=== PATIENT | female | born 1960 | race Caucasian/White ===

== ENCOUNTER 2018-03-15 01:44 | Observation (INO) | payer OTHER ==
[~2018-03-15] VITALS: Ht 172.7 cm; Wt 85.3 kg
[~2018-03-15 01:44] MED LIST: COZAAR25 M1 PO; CRESTOR10 M1 PO; ZOLOFT100 M1 PO
--- NOTE | 2018-03-15 07:47 | Operative Report ---
Operative/Inv Procedure Report Surgery Date: 03/15/18 Name of Procedure: Right total knee arthroplasty Pre-Operative Diagnosis: Right knee degenerative joint disease Post-Operative Diagnosis: Right knee degenerative joint disease Estimated Blood Loss: 50ml to 100ml Surgeon/Industrial Economics Teacher: Harris LAGUNAS,JONI Todd Anesthesia: block, spinal Implants: [employer] size 6 right cruciate retaining legion Oxinium femoral component. Judith II right nonporous tibial baseplate size 4. Judith II biconvex patellar component size 23 mm. Legion cruciate retaining XLPE high flexion articular insert size 34, 9 mm. Drains: Hemovac Complications: None Condition: Stable to PACU Operative Indication: This is a 57-year-old female with long-standing right knee pain that has failed conservative care. Risks and benefits of the procedure were discussed with the patient at length. Risks include but are not limited to nerve damage, muscle damage, infection, blood loss, blood clots, pulmonary embolus, and even . The patient agreed to the above risks and elected to proceed with surgery. Operative/Procedure Note Note: The patient was taken to the operating room. Anesthesia was induced after the timeout was performed. The lower extremity was prepped and draped in the normal sterile fashion. IV antibiotics were given prior to incision. The site marking was visualized prior to incision. After the leg was prepped and draped, an esmarch was used to exsanguinate the extremity. The tourniquet was inflated. A midline incision was made proximal to the patella extending down to the tibial tubercle. A medial parapatellar approach was then made. The skin was retracted and the extensor mechanism was incised. The knee was taken down into full extension. The patellar fat pad was resected. The medial retinaculum was then taken down. The synovium over the distal femur was then resected. The patella was everted and the knee was flexed up. The lateral meniscus was then excised. The ACL was removed. A drill was then used to open up the distal femur. The intramedullary guide was then applied. A 6 distal femoral cut was then made. The femur was then sized. The chamfer guide was then applied. The anterior, posterior, and chamfer cuts were then made while protecting the patellar tendon with a Hohmann retractor and the medial collateral ligament with a Z retractor. A pickle fork was then used to deliver the tibia. The extramedullary tibial guide was then applied. The proximal tibial cut was made. The medial and lateral meniscus were then excised. The osteophytes were removed with a Rongeur. The femur was lifted and the posterior knee was checked for any osteophytes. The tibia was sized and the trial base plate was then pinned in place. A trial femoral component was placed and a trial polyethylene insert was then applied as well. The knee was taken through a range of motion and was noted to be quite stable. The patella was then everted, sized, and then reamed. A trial patellar component was placed and the knee was taken through range of motion. The patella was noted to be quite stable. The femur was then punched. The tibial fin punch was then used. All trial instruments were then removed. The knee was copiously irrigated. Retractors were placed in the final components were then cemented in. A trial polyethylene insert was then placed. After the cement hardened, the excess cement was removed. The trial poly-insert was then removed. The knee was copiously irrigated. The final poly insert was inserted. The tourniquet was let down. Any bleeding vessels were identified and cauterized. A 1/8 inch Hemovac drain was then placed. The extensor mechanism was closed with #1 Vicryl suture in a simple interrupted fashion. The skin was closed with 2-0 Vicryl suture. A running subcuticular 4-0 Monocryl stitch was then placed. Dermabond was applied. A dry sterile dressing was placed and patient was transferred to PACU in stable condition.
[2018-03-15 12:28] VITALS: BP 110/60
[2018-03-15 14:38] VITALS: BP 120/75
--- NOTE | 2018-03-15 16:25 | Admission Core Measures ---
Acute Coronary Syndrome (CM) ACS Core Measures Acute Coronary Syndrome Diagnosis No Congestive Heart Failure (NEW) CHF Core Measures Congestive Heart Failure Diagnosis No Cerebrovascular Accident (NEW) CVA Core Measures CVA/TIA Diagnosis No Venous Thromboembolism VTE Core Delicia (View Protocol) VTE Risk Factors Age>40 No Mechanical VTE Prophylaxis d/t N/A MechProphylax Ordered No VTE Pharm Prophylaxis d/t NA PharmProphylax ordered Problem List As ranked by this Provider includes Assessment & Plan 1. Primary osteoarthritis of right knee HOME MEDS Home Med List Losartan Potassium (Cozaar) 25 MG TABLET 1 TAB PO DAILY HTN (Reported) Rosuvastatin Calcium (Crestor) 10 MG TABLET 1 TAB PO DAILY CHOLESTEROL ( Reported) Sertraline HCl (Zoloft) 100 MG TABLET 1 TAB PO DAILY DEPRESSION (Reported)
--- NOTE | 2018-03-15 16:28 | PN- Orthopedic ---
See Addendum Subjective Subjective: Patient comfortable, mild to moderate pain about the knee joint on the right side. Percocet has helped. She did not clear physical therapy and will require continued observation overnight. Objective Vital Signs and I&Os Vital Signs Date Time Temp Pulse Resp B/P B/P Pulse O2 O2 Flow FiO2 Mean Ox Delivery Rate 03/15 1438 97.5 63 20 120/75 100 Room Air 03/15 1228 98 Room Air 03/15 1228 97.6 60 16 110/60 98 Room Air Intake & Output 03/15 0800 03/15 0000 03/14 1600 03/14 0803/14 0000 Intake Total 0 Output Total 360 Balance -360 Intake, Oral 0 Output, 110 Drainage Output, Urine 250 Patient 188 lb Weight Physical Exam: Well-developed well-nourished no apparent distress. HEENT: Atraumatic, extraocular motion intact Neck: Supple, no lymphadenopathy Respiratory: No respiratory distress Extremities: No edema RIGHT lower extremity dressing in place, KASHMIR drain in place, approximately 70 cc of bloody drainage noted, holding self suction Range of motion is 0-60. Compression wrap in place. ALPS in place Neurovascularly intact distally Bilateral calves are supple, nontender. Neuro: Alert and oriented x3 Psych: Mood affect normal, normal memory normal judgment. Skin: Warm and dry, no rash on exposed skin Assessment/Plan Assessment/Plan Postop day #0 status post right total knee arthroplasty Perioperative antibiotics. Pain medication as needed. Out of bed Physical therapy, weightbearing as tolerated DC IV fluids DC Mancera catheter Regular diet Follow a.m. labs Lovenox 40 mg subcu daily starting tomorrow for DVT prophylaxis x 4-6 weeks Toradol 30mg IV [id number] for pain control anti-inflammatory ALPS for DVT prophylaxis Regular home meds Dressing change postop day 2 Patient placed in 23 hour observation as she did not clear physical therapy and is a fall risk, she will require further monitoring overnight, likely IV narcotics, IV antibiotics for 23 hours for infectious prophylaxis as standard of care after joint replacement surgery. Core Measures Venous Thromboembolism VTE Risk Factors Age>40 No Mechanical VTE Prophylaxis d/t N/A MechProphylax Ordered No VTE Pharm Prophylaxis d/t NA PharmProphylax ordered
--- NOTE | 2018-03-15 16:30 | Surg Short-stay <48hrs Dis Sum ---
Visit Information Visit Dates Admission Date: 03/15/18 Discharge Date: 03/17/18 Surgical Short Stay DC Summary Admission Diagnosis: Primary right knee unilateral osteoarthritis Final Diagnosis: Same status post right total knee arthroplasty Procedure(s): Right total knee arthroplasty Summary/Significant Findings: Patient underwent right total knee arthroplasty without complications. She was then transferred to the floor, she received infectious prophylaxis, DVT prophylaxis with Lovenox. She had a drain placed, which was removed after the bloody drainage slowed. She was evaluated and treated by physical therapy. Vital signs stable, pain was well controlled with oral pain meds. She was discharged home with [facility] services in stable condition. Condition at Discharge: Good Discharge Disposition: home health services Discharge instructions provided to patient/family: Yes Post discharge follow-up plan: [address] Iglesias. John for DVT prophylaxis.
[2018-03-15] MEDS ORDERED: PERCOCET 5-3251 EACH PO (16:31)
[2018-03-15] MEDS ORDERED: DOCUSATE SODIU100 M3 PO (16:31)
[2018-03-15] MEDS ORDERED: LOVENOX40 MG/0.1 SC (16:31)
--- NOTE | 2018-03-15 16:36 | Patient Discharge Instructions ---
Discharge Instructions General Discharge Information You were seen/treated for: Primary unilateral right knee osteoarthritis You had these procedures: Right total knee arthroplasty Watch for these problems: Follow-up with Dr. Iglesias in 2 weeks. Call the office with any concerns of fever greater than 101.5. Large amounts of discharge or drainage from the wound or inability to bear weight on your operative side. You will have a follow-up visit in 2 weeks You may weight-bear as tolerated. Activity as tolerated. Range of motion as tolerated. Do not put pillows behind the knee, use a pillow under the heel to ensure your are in full knee extension. Keep the dressing dry as possible, you may shower with the dressing in place however, do not take a bath or submerge the wound in water as this will increase your chance of infection. Change the dressings after the shower. You may use dry gauze and tape or large Band-Aids Do not apply any ointments to the wound. Due to a risk of blood clots you'll need to be on Lovenox, 40 mg, once a day injection for the next 4-6 weeks. Take pain medication as directed. Apply ice as needed for 20 minutes every hour for the first few days. Please take Colace and/or MiraLAX [id number] to avoid constipation while you're on narcotic pain medication. Do not soak the wound: Yes No bath, but you may shower: Yes Diet Continue normal diet: Yes Activity Full Activity/No Limits: No Activity Self Limited: Yes Acute Coronary Syndrome Inclusion Criteria At DC or during hospital stay patient has or had the following: ACS DIAGNOSIS No Discharge Core Measures Meds if any: Prescribed or Continued at Discharge Meds if any: NOT Prescribed or Continued at Discharge Congestive Heart Failure Inclusion Criteria At DC or during hospital stay patient has or had the following: CHF DIAGNOSIS No Discharge Core Measures Meds if any: Prescribed or Continued at Discharge Meds if any: NOT Prescribed or Continued at Discharge Cerebrovascular accident Inclusion Criteria At DC or during hospital stay patient has or had the following: CVA/TIA Diagnosis No Discharge Core Measures Meds if any: Prescribed or Continued at Discharge Meds if any: NOT Prescribed or Continued at Discharge Venous thromboembolism Inclusion Criteria VTE Diagnosis No VTE Type NONE VTE Confirmed by (Test) NONE Discharge Core Measures - Per Current guidelines, there needs to be overlap - treatment for the first 5 days of Warfarin therapy. - If discharged on Warfarin prior to 5 days of - overlap therapy, the patient will need to be - assessed for post discharge needs including - *Post discharge parental anticoagulation - *Warfarin and/or parental anticoagulation education - *Follow up date to check INR post discharge At least 5 days overlap therapy as Inpatient No Meds if any: Prescribed or Continued at Discharge Note: Overlap Therapy is Warfarin and Anticoagulant Meds if any: NOT Prescribed or Continued at Discharge
[2018-03-15 17:00] VITALS: BP 124/72
[2018-03-15 19:30] VITALS: BP 120/80
[2018-03-15 22:00] VITALS: BP 118/70
[2018-03-16] VITALS (7 sets, daily range): BP systolic 114–140; BP diastolic 60–80
--- NOTE | 2018-03-16 07:36 | PN- Orthopedic ---
Subjective Subjective: Patient experienced pain throughout the night requiring administration of iv narcotic with minimal relief. Denies chest pain, shortness of breath and difficulty breathing. Denies nausea and vomitting. Has been able to void. Objective Vital Signs and I&Os Vital Signs Date Time Temp Pulse Resp B/P B/P Pulse O2 O2 Flow FiO2 Mean Ox Delivery Rate 03/16 0600 98.1 75 20 124/70 95 Room Air 03/16 0159 98.1 77 18 114/68 96 Room Air 03/15 2200 98.6 73 20 118/70 95 Room Air 03/15 1930 97.9 76 18 120/80 98 Room Air 03/15 1924 Room Air 03/15 1700 97.9 75 20 124/72 96 Room Air 03/15 1438 97.5 63 20 120/75 100 Room Air 03/15 1228 98 Room Air 03/15 1228 97.6 60 16 110/60 98 Room Air Intake & Output 03/16 0800 03/16 0000 03/15 1600 03/15 0800 03/15 0000 03/14 1600 Intake Total 270 1220 0 Output Total 510 830 360 Balance -240 390 -360 Intake, IV 70 300 Intake, Oral 200 920 0 Output, 110 130 110 Drainage Output, Urine 400 700 250 Patient 188 lb Weight Physical Exam: General: Alert and oriented x3, no distress Cards: RRR, s1s2 Pulm: CTA bilaterally, non-labored respiratory effort Abd: Non-tender, non-distended Extremities: Moves all extremities, neurovacular status grosslly intact. Leg in full extension. Dressing dry an intact. KASHMIR holding suction, sanguinous drainage (see I&O). Bilateral calves soft and non-tender Assessment/Plan Assessment/Plan This is a 57 year old female, POD 1, s/p R TKR. Patient requires continued in-hospital observation due to failure to clear physical therapy thus making her a fall risk. In addition, patient requires continued observation status due to uncontrolled pain thereby necessitating the use of IV narcotics. -DC iv fluids today -OOB with PT, WBAT, stairs -Transition to po only pain medications -Will likely dc drain this afternoon -Dressing change tomorrow am -Continue lovenox and alps for dvt ppx -Continue diet as tolerated -Anticipate dc later today vs tomorrow depending on pain control and physical therapy progress Will discuss plan of care with Dr. Iglesias Core Measures Venous Thromboembolism VTE Risk Factors Age>40 No Mechanical VTE Prophylaxis d/t N/A MechProphylax Ordered No VTE Pharm Prophylaxis d/t NA PharmProphylax ordered
[2018-03-16 08:54] LABS: ABSOLUTE BASOPHIL COUNT 0 /CUMM (0.0-0.2); ABSOLUTE EOSINOPHIL COUNT 0.1 /CUMM (0.0-0.7); ABSOLUTE GRANULOCYTE CT 5.6 /CUMM (1.4-6.5); ABSOLUTE LYMPH COUNT 1.3 /CUMM (1.2-3.4); ABSOLUTE MONOCYTE COUNT 0.6 /CUMM (0.10-0.60); BASOPHIL % 0.4 % (0.0-2.0); EOSINOPHIL % 1.8 % (0-5); GRANULOCYTE % 72.8 % (42.2-75.2); HEMATOCRIT 33.5 % (37-47); MEAN CORPUSCULAR HGB 32.3 PG (27.0-31.0); MEAN CORPUSCULAR HGB CONC 34.6 G/DL (33.0-37.0); MEAN CORPUSCULAR VOLUME 93.4 FL (81.0-99.0); MEAN PLATELET VOLUME 9.5 FL (7.4-10.4); PLATELET COUNT 178 /CUMM (130-400); RED BLOOD CELL CT 3.58 /CUMM (4.20-5.40); WHITE BLOOD CELL COUNT 7.6 /CUMM (4.8-10.8)
[2018-03-17 02:00] VITALS: BP 100/70
[2018-03-17 05:54] VITALS: BP 114/68
--- NOTE | 2018-03-17 08:25 | PN- Orthopedic ---
Subjective Subjective: Pain controlled with percocet. Reports having a good night sleep. Ambulating with PT. Denies numbness/tingling. Tolerating reg diet, no nausea or vomiting. Objective Vital Signs and I&Os Vital Signs Date Time Temp Pulse Resp B/P B/P Pulse O2 O2 Flow FiO2 Mean Ox Delivery Rate 03/17 0554 98.9 82 20 114/68 95 Room Air 03/17 0200 98.6 71 20 100/70 95 Room Air 03/17 0000 Room Air 03/16 2213 98.7 84 20 120/60 94 Room Air 03/16 1800 98.8 80 20 140/60 100 Room Air 03/16 1358 98.2 88 20 118/80 99 Room Air 03/16 1028 98.2 72 20 120/78 97 Room Air Intake & Output 03/17 0000 03/16 0000 Intake Total 120 021 878 0949 Output Total 245 510 830 Balance 120 255 -240 390 Intake, IV 70 300 Intake, Oral 120 500 200 920 Number 0 Bowel Movements Output, 145 110 130 Drainage Output, Urine 100 400 700 Physical Exam: Gen - nad Cardiac - S1S2 noted Lungs - CTAB Ext - moves all extremities, dressing c/d/i, incision closed with internal sutures, healing well no signs of infection, redressed with abd, formed neil site c/d/i, no active drainage, sensory and motor intact, alps in place, no edema or calf tenderness Current Medications: Current Medications Sig/Ted Start time Last Medication Dose Route Stop Time Status Admin Acetaminophen 650 MG Q4P PRN 03/15 1015 AC PO Atorvastatin Calcium 80 MG 1700 03/15 1700 AC 03/16 PO 1620 Diphenhydramine HCl 25 MG AT BEDTIME PRN 03/16 1645 AC 03/16 PO 2115 Docusate Sodium 100 MG DAILY NEEDED PRN 03/15 1015 AC PO Enoxaparin Sodium 40 MG DAILY 03/16 09 AC 03/16 SC 1131 Ketorolac 30 MG Q8 03/15 1400 03/17 Tromethamine IV 03/18 0601 0518 Losartan Potassium 100 MG DAILY 03/16 09 AC 03/16 PO 0823 Morphine Sulfate 4 MG Q2P PRN 03/15 1015 AC 03/16 IV 0209 Omeprazole 20 MG DAILY AC 03/16 0700 AC 03/17 PO 0518 Ondansetron HCl 4 MG Q6P PRN 03/15 1015 AC IV Oxycodone/ 1 TAB Q4P PRN 03/15 1015 AC 03/16 Acetaminophen PO 1112 Oxycodone/ 2 TAB Q4P PRN 03/15 1015 AC 03/16 Acetaminophen PO 1956 Patient Medication 1 ED ONE ONE 03/16 1430 DC 03/16 Teaching ED 03/16 1431 1430 Senna/Docusate Sodium 2 TAB AT BEDTIME NEED.. 03/15 1015 AC PO Sertraline HCl 100 MG DAILY 03/16 0900 AC 03/16 PO 0823 Results Last 48 Hours of Labs: Laboratory Tests 03/16 0740 Chemistry Sodium (137 - 145 mmol/L) 137 Potassium (3.5 - 5.1 mmol/L) 4.0 Chloride (98 - 107 mmol/L) 106 Carbon Dioxide (22 - 30 mmol/L) 22 Anion Gap (5 - 16) 9 BUN (7 - 17 mg/dL) 14 Creatinine (0.5 - 1.0 mg/dL) 0.7 Estimated GFR (>60 ml/min) > 60 BUN/Creatinine Ratio (7 - 25 %) 20.0 Hematology CBC w Diff NO MAN DIFF REQ WBC (4.8 - 10.8 /CUMM) 7.6 RBC (4.20 - 5.40 /CUMM) 3.58 L Hgb (12.0 - 16.0 G/DL) 11.6 L Hct (37 - 47 %) 33.5 L MCV (81.0 - 99.0 FL) 93.4 MCH (27.0 - 31.0 PG) 32.3 H MCHC (33.0 - 37.0 G/DL) 34.6 RDW (11.5 - 14.5 %) 13.0 Plt Count (130 - 400 /CUMM) 178 MPV (7.4 - 10.4 FL) 9.5 Gran % (42.2 - 75.2 %) 72.8 Lymphocytes % (20.5 - 51.1 %) 17.1 L Monocytes % (1.7 - 9.3 %) 7.9 Eosinophils % (0 - 5 %) 1.8 Basophils % (0.0 - 2.0 %) 0.4 Absolute Granulocytes (1.4 - 6.5 /CUMM) 5.6 Absolute Lymphocytes (1.2 - 3.4 /CUMM) 1.3 Absolute Monocytes (0.10 - 0.60 /CUMM) 0.6 Absolute Eosinophils (0.0 - 0.7 /CUMM) 0.1 Absolute Basophils (0.0 - 0.2 /CUMM) 0 Assessment/Plan Assessment/Plan 57 F POD 2 s/p R TKR, recovering well, stable for discharge PT, WBAT Reg diet Pain reigmen prn Dry daily dressing changes DVT ppx - lovenox, alps Cont observation status in anticipation of d/c home with [facility] today Will d/w Dr. Iglesias Core Measures Venous Thromboembolism VTE Risk Factors Age>40 No Mechanical VTE Prophylaxis d/t N/A MechProphylax Ordered No VTE Pharm Prophylaxis d/t NA PharmProphylax ordered
[2018-03-17 09:41] VITALS: BP 130/74
[2018-03-17] MEDS ORDERED: PERCOCET 5-3251 EACH PO (10:14)
== END 2018-03-17 12:55 | disposition home health service (06) ==
LOC: STS 01:44 → EDSEX 07:00 → PACUH 09:57 → 2NA 09:57 → ENRESERV 11:14 → ENTRNSPT 11:39 → EDTRNSPT 11:47 → EDTRNSPTSTS 11:47 → 2NA 11:59 → CMPTRNSPT 12:31 → ENPENDDIS 03-17 10:21 → ENTRNSPT 03-17 12:43 → 2NA 03-17 12:55 → CMPTRNSPT 03-17 12:57
PROVIDERS: Physician Assistant Surgical
DX: M17.11 Unilateral primary osteoarthritis, right knee (principal); G89.18 Other acute postprocedural pain; Z87.891 Personal history of nicotine dependence; F32.9 Major depressive disorder, single episode, unspecified; I10 Essential (primary) hypertension; Z72.89 Other problems related to lifestyle; E78.5 Hyperlipidemia, unspecified; Z79.899 Other long term (current) drug therapy
CPT/HCPCS: 1255; 36415; 82436; 87086; 96372; 96374; 96375; 97110-GO; 97110-GP; 97116-GO; 97116-GP; 97161-GP; 97530-GO; C1713; C9290; G0378; J1650; J1885; J2405; J3490; J7042